=== PATIENT | female | born 1960 ===

== ENCOUNTER → 2018-12-19 21:50 | Outpatient (REF) | payer OTHER, SELFPAY ==
[2018-12-20 00:03] LABS: Rubella Antibody IgG 32.3 IU/mL (>15)
[2018-12-23 09:06] LABS: Rubeola Measles IgG < 25.00 AU/mL (< 25.00)
== END ==
LOC: LAB 21:50
PROVIDERS: Visit Provider Family Medicine
DX: Z20.828 Contact with and (suspected) exposure to other viral communicable diseases (principal)
CPT/HCPCS: 36415; 86735; 86762; 86765